=== PATIENT | male | born 1980 | race Asian ===

== ENCOUNTER 2016-10-12 15:29 | Emergency (ER) | payer BC ==
[~2016-10-12] VITALS: Ht 172.7 cm; Wt 74.8 kg
[2016-10-12 16:04] VITALS: BP_SYST 115
[2016-10-12] MEDS ORDERED: IBUPROFEN 600 MG TABLET PO ONE (16:15)
[2016-10-12 17:14] VITALS: BP_SYST 115
== END 2016-10-12 17:14 | disposition home or self-care (01) ==
LOC: SED 15:29
DX: S93.401A Sprain of unspecified ligament of right ankle, initial encounter (principal); V00.131A Fall from skateboard, initial encounter; Y93.51 Activity, roller skating (inline) and skateboarding; Y99.8 Other external cause status; Y92.89 Other specified places as the place of occurrence of the external cause
CPT/HCPCS: 99284